=== PATIENT | female | born 1950 | race Caucasian/White ===

== ENCOUNTER 2022-04-05 16:54 | Emergency (ER) | payer MEDICARE ==
[2022-04-05 18:57] LABS: BUN/CREATININE RATIO 29 (0-10)
[2022-04-05 21:53] LABS: RED BLOOD COUNT 4.75 M/UL (4.00-5.10); WHITE BLOOD COUNT 18.5 K/UL (4.5-11.0)
== END 2022-04-05 22:30 | disposition home or self-care (01) ==
LOC: ER1 16:54
PROVIDERS: Family Medicine
DX: H53.8 Other visual disturbances (principal); D72.828 Other elevated white blood cell count; T38.0X5A Adverse effect of glucocorticoids and synthetic analogues, initial encounter
CPT/HCPCS: 70450; 80053; 82550; 82553; 84484; 85025; 85652; 86140; 93005; 99285